=== PATIENT | female | born 1980 | race Caucasian/White ===

== ENCOUNTER → 2023-06-22 10:00 | Outpatient (REF) | payer OTHER, SELFPAY | LOC: HWWDC 10:00 | PROVIDERS: ATTENDING PHYSICIAN Obstetrics & Gynecology Gynecology; FAMILY PHYSICIAN Family Medicine | DX: Z12.31 Encounter for screening mammogram for malignant neoplasm of breast (principal) | CPT/HCPCS: 77063; 77067 ==

== ENCOUNTER 2024-02-12 16:10 | Emergency (ER) | payer OTHER, SELFPAY ==
[2024-02-12] VITALS (7 sets, daily range): BP systolic 96–110; BP diastolic 60–73; BMI 29.7
[2024-02-12 16:57] LABS: % Basophils 0.4 % (0-2); % Eosinophils 1.2 % (0-6); % Immature Granulocytes 0.2 % (0-0.5); % Lymphocytes 39.5 % (20.5-51.1); % Monocytes 4.8 % (1.7-9.3); % Neutrophils 53.9 % (42.2-75.2); Absolute Eosinophils 0.1 10^3/uL (0-0.7); Absolute Monocytes 0.2 10^3/uL (0.1-0.6); Absolute Neutrophils 2.7 10^3/uL (1.4-6.5); Hematocrit 35.7 % (37.0-47.0); Hemoglobin 12.2 g/dL (12.0-16.0); Mean Corp Hgb Conc. 34.2 g/dL (33.0-37.0); Mean Corpuscular Hgb 31.1 pg (27.0-31.0); Mean Corpuscular Volume 91.1 fL (81.0-99.0); Mean Platelet Volume 9.9 fL (7.4-10.4); Nucleated Red Blood Cells % 0 %; Platelet Count 267 10^3/uL (130-400); Red Blood Cell Count 3.92 10^6/uL (4.20-5.40); Red Cell Dist. Width 12.6 % (11.5-14.5)
[2024-02-12 17:10] LABS: ALT (SGPT) 14 U/L (0-35); AST (SGOT) 19 U/L (14-36); Albumin 4.4 g/dl (3.5-5.0); Alkaline Phosphatase 25 U/L (38-126); Blood Urea Nitrogen 9 mg/dl (7-17); Calcium 9.5 mg/dl (8.4-10.2); Carbon Dioxide 29 mmol/L (22-30); Chloride 100 mmol/L (98-107); Glucose 78 mg/dl (70-99); Potassium 3.7 mmol/L (3.5-5.1); Sodium 139 mmol/L (135-145); Total Bilirubin 0.3 mg/dl (0.2-1.3); eGFR > 60.00
--- NOTE | 2024-02-12 19:05 | ED.GENMED ---
History of Present Illness
General
Chief Complaint: Blood Pressure Problem
Source: patient
Exam Limitations: none
Time Seen by Provider: 02/12/24 19:05
Nursing documentation reviewed up to this point in time: agreed with
History of Present Illness
History of Present Illness:
43 yr old female presents to the ED for evaluation of low blood pressure. Patient reports over the weekend her blood pressure was in the 80s over 50s. She was very weak and tired and took her blood pressure on her own.
She was at her primary care physician office today for and mentioned her low blood pressure. Her blood pressure however in the office was again low in the 80s after several checks.
She has felt very tired and fatigued.
She denies any recent illness fever chills.
She denies any pain. Shortness of breath. She has no cardiac history. She does have a history of iron deficient anemia.
She reports she is on Zepbound for weight loss and ever since being on Zepbound she feels very full and does not drink enough water because she has a full sensation.
She denies any abdominal pain nausea vomiting fever chills back pain. Denies any known frequency urgency or dysuria
Review of Systems
Review of Systems
Allergies reviewed?: Yes
All Other Systems: ROS reviewed and negative except as documented in HPI and ROS
Constitutional: Reports fatigue; Denies fever or chills
EENT: Reports no symptoms
Respiratory: Reports no symptoms
Cardiac: Reports no symptoms
ABD/GI: Reports no symptoms
: Reports no symptoms
Musculoskeletal: Reports no symptoms
Skin: Reports no symptoms
Neurological: Reports no symptoms
Psychiatric: Reports no symptoms
Phy Exam
General Physical Exam
General Presentation: no apparent distress
General age: appears stated age
General Skin: warm and dry
General Habitus: normal
General Mental: alert
General Hydration: appears well hydrated
Cardiovascular Exam
Cardiovascular Exam: regular rate/rhythm
Pulmonary Exam
Pulmonary Exam: lungs clear and no respiratory distress
Gastrointestinal Exam
Gastrointestinal Exam: normal bowel sounds, non tender and soft
Neurological Exam
Neurological Exam: alert and oriented x3
Course
Orders/Labs/Results
Orders:
Orders
02/12/24 16:19
Electrocardiogram (*1) Urgent
Reason for Study: Chest Pain
EKG- Treatment ONCE
02/12/24 16:30
Complete Blood Count/With Diff Urgent
Comprehensive Metabolic Panel Urgent
Free T4 Urgent
TSH Reflex To Free T4 Urgent
Comment: ADD ON
02/12/24 19:23
Add On- LAB Urgent
Tests Added?: tsh with refleive t4
0.9% Sodium Chloride 1000 ml [Nss] 1,000 ml IV BOLUS
02/12/24 21:09
0.9% Sodium Chloride 1000 ml [Nss] 1,000 ml IV BOLUS
02/12/24 21:10
PHENYLephrine 50 MG/250 ML NSS [Evaristo-Synephrine] 50 mg in 250 ml IV NOW
Initial dose in mcg/min, then titrate:: 40
Titrate to keep:: SBP > 90 mmHg
Titrate by mcg/min:: 20 mcg/min
Frequency of titrations (minutes):: 5
Maximum dose in ICU in mcg/min:: 200
Maximum dose in IMU in mcg/min:: 80
Begin to taper infusion when:: Remained at goal for 4hrs
Taper by mcg/min:: 20 mcg/min
Frequency of taper (minutes) if patient maintains goal:: 30
Taper to off?: Yes
If infusion off & no longer maintaining goal:: Contact Provider
Abnormal Lab Results
02/12/24
16:30
RBC 3.92 L 10^6/uL
(4.20-5.40)
Hct 35.7 L %
(37.0-47.0)
MCH 31.1 H pg
(27.0-31.0)
Alkaline Phosphatase 25 L U/L
(38-126)
TSH (Reflex) 5.72 H uIU/ml
(0.47-4.68)
02/12/24 16:30
02/12/24 16:30
Vital Signs
Initial and Last Documented VS:
Initial Vital Signs
Temp Pulse Resp BP Pulse Ox
97.7 F 84 20 98/70 99
02/12/24 16:14 02/12/24 16:14 02/12/24 16:14 02/12/24 16:14 02/12/24 16:14
Last Documented Vital Signs
Temp Pulse Resp BP Pulse Ox
97.7 F 71 18 96/64 98
02/12/24 16:14 02/12/24 22:00 02/12/24 21:45 02/12/24 22:00 02/12/24 22:00
Transfer Iron Operator consulted with Physician
Transfer Iron Operator consulted with physician?: Yes
Name of Physician Consulted: Goodmayra
MDM/Problems Addressed
MDM/Problems Addressed:
Patient is a 43-year-old female who presented to the ER for low blood pressure. Patient reports over the weekend she had low blood pressure in the 80s over 50s and felt lightheaded. She saw her family doctor today for regular checkup and was sent
here to the ER for fluids. Looking back in patient's history and previous visits her blood pressure in 2022 was in the low 100s over 70s.
She presents with a blood pressure of 98/70 here however pulse in the 70s to 80s. She is nontoxic-appearing no acute distress she is well-appearing denies any chest pain shortness of breath abdominal pain nausea vomiting fever chills. She denies
any recent illness. She has a normal white count stable hemoglobin and normal chemistries. Her TSH is very minimally elevated with a normal free T4.
Patient was given a liter of fluids here we will give a second liter and will walk patient see how she is feeling however stable for discharge home with close outpatient follow-up PCP.
Patient feeling much better ambulated without any dizziness lightheadedness blood pressure in the low 100s. She is very nontoxic-appearing she was given a total of 2 L fluid will DC with instructions to increase fluid and closely follow-up with
family doctor.
*Critical Care Note
Total Time (30-74mins, 75-104mins- exclusive of procedures): Not Applicable
ED Attending Note
-
Portions of this chart may have been created with voice recognition software.� Occasional wrong word or��sound alike� substitutions may have occurred due to the inherent limitations of voice recognition software.
Discharge Plan
Departure
Patient Disposition: Home (Routine Discharge)
Date of Disposition: 02/12/24
Time of Disposition: 22:31
Patient with high blood pressure during this ER visit?: No
Condition: Fair
Covid-19: Not Applicable
Discharge Problem:
Acute hypotension
Prescriptions:
No Action
meclizine 25 mg tablet
25 mg PO TID Qty: 10 0RF
Referrals:
Sky Lepe DO [Family Provider] -
Activity Restrictions/Additional Instructions:
increase fluids. Closely follow-up with your family doctor in the next 2 days for reevaluation of blood pressure return if any worsening of symptoms .
Interventions
Interventions:
*Risk Screen - Suicide Last Done: 02/12/24 16:14
*General Assessment Last Done: 02/12/24 16:14
*Neglect/Abuse Screening Last Done: 02/12/24 16:14
*ED COVID-19 Vaccine History Last Done: 02/12/24 19:37
ED- Cardiac Assessment Last Done: 02/12/24 19:48
ED- Neurological Assessment Last Done: 02/12/24 19:48
ED- Pulmonary Assessment Last Done: 02/12/24 19:48
Discharge Date and Time
Print Language: DUTCH
[2024-02-12] MEDS: NSS 1000 IV ×2 (19:34→21:26)
[2024-02-12 20:37] LABS: TSH Reflex To Free T4 5.72 uIU/ml (0.47-4.68)
[2024-02-12 21:06] LABS: Free T4 0.78 ng/dl (0.78-2.19)
== END 2024-02-12 22:53 | disposition home or self-care (01) ==
LOC: EMR 16:10
PROVIDERS: Emergency Medicine; EMERGENCY PHYSICIAN Emergency Medicine; FAMILY PHYSICIAN Family Medicine
DX: I95.9 Hypotension, unspecified (principal)
CPT/HCPCS: 99284; 96360; 96361; 80053; 84439; 84443; 85025; 93005

== ENCOUNTER 2024-04-20 22:40 | Inpatient (IN) | payer OTHER, SELFPAY ==
[2024-04-20 18:44] VITALS: BP 117/80
[2024-04-20] MEDS: DILAUDID 1 MG IV ×2 (19:39→21:42)
[2024-04-20] MEDS: ZOFRAN 4 MG IV ×2 (19:40→21:42)
[2024-04-20] MEDS: PROTONIX IV 40 MG IV (19:40)
[2024-04-20] MEDS: NSS 1000 IV ×2 (19:40→21:42)
--- NOTE | 2024-04-20 19:51 | ED.GENMED ---
History of Present Illness
General
Chief Complaint: Abdominal Pain
Source: patient
Exam Limitations: none
Time Seen by Provider: 04/20/24 19:22
Nursing documentation reviewed up to this point in time: agreed with
History of Present Illness
History of Present Illness:
44-year-old female prior lumpectomy hernia repair presents with right upper abdominal pain 5 episodes since February tells me is not associated with eating, she is concerned it could be her gallbladder, has not sought medical attention,
pain is sharp radiates into the back, nausea without vomiting no fevers no chest pain most recent episode has been fairly constant since yesterday
Past History
Past History
ED Past Surgical History: Gynecological; Negative Appendectomy or Cholecystectomy
Social History
Tobacco: Smoker
Alcohol: Occasional
Drug: None
Personal:
Living: with family
Employment: Employed
Review of Systems
Review of Systems
All Other Systems: Not applicable
Constitutional: Denies fever or fatigue
Respiratory: Reports no symptoms
Cardiac: Reports no symptoms
ABD/GI: Reports abdominal pain and nausea
Musculoskeletal: Reports back pain
Skin: Reports no symptoms
Neurological: Reports no symptoms
Endocrine: Reports no symptoms
Phy Exam
Physical Exam
Physical Exam:
Physical Exam
General: 44 female looks uncomfortable due to pain
Neck: Slight scleral yellowing
Heart: s1/s2 regular rate and rhythm, no murmur. equal radial pulses.
Lungs: no acute respiratory distress. clear bilaterally
Abdomen: Tender in the right upper abdomen
Neuro: alert and oriented. no focal neurological deficits
Skin: no rash
Psychiatric: well kept. interactive and cooperative
Extremities: no edema.
Course
Orders/Labs/Results
Orders:
Orders
04/20/24 19:27
Electrocardiogram (*1) Stat
Reason for Study: Abdominal Pain
EKG- Treatment ONCE
0.9% Sodium Chloride 1000 ml [Nss] 1,000 ml IV BOLUS
HYDROmorphone [Dilaudid] 1 mg IV NOW STA
Ondansetron Injectable [Zofran] 4 mg IV NOW STA
Pantoprazole [Protonix IV] 40 mg IV NOW STA
US Abdomen Complete/Upper Urgent
Comment:
Reason For Exam: ruq pain
04/20/24 19:31
Complete Blood Count/With Diff Urgent
Comprehensive Metabolic Panel Urgent
Lipase Urgent
Abnormal Lab Results
04/20/24
19:31
Absolute Lymphs (auto) 1.1 L 10^3/uL
(1.2-3.4)
Neutrophils % 77.1 H %
(42.2-75.2)
Lymphocytes % 16.7 L %
(20.5-51.1)
Carbon Dioxide 31 H mmol/L
(22-30)
Total Bilirubin 1.4 H mg/dl
(0.2-1.3)
AST 1299 H* U/L
(14-36)
ALT 730 H* U/L
(0-35)
04/20/24 19:31
04/20/24 19:31
Vital Signs
Initial and Last Documented VS:
Initial Vital Signs
Temp Pulse Resp BP Pulse Ox
97.8 F 96 18 117/80 98
04/20/24 18:44 04/20/24 18:44 04/20/24 18:44 04/20/24 18:44 04/20/24 18:44
Last Documented Vital Signs
Temp Pulse Resp BP Pulse Ox
97.8 F 96 18 117/80 98
04/20/24 18:44 04/20/24 18:44 04/20/24 18:44 04/20/24 18:44 04/20/24 18:44
MDM/Problems Addressed
Differential Diagnosis Includes:
Biliary colic pancreatitis cholecystitis choledocholithiasis urinary tract pathology less likely pulmonary breath
MDM/Problems Addressed:
Right upper quadrant pain
Chronic conditions affecting care: Previous abdomnial surgery
Acute Exacerbation and/or Progression of Chronic Illness: Previous abdomnial surgery
*Radiology
Radiology exam reviewed: preliminary read by ED provider
*Pulse Oximetry
Patient hypoxic: no
*EKG
Interpreted by ED Provider?: Yes
Interpretation: normal
Comparison EKG: no comparison EKG present
Heart Rate: 78
Rate: normal
Rhythm: sinus
Ischemia: no ischemia
*[employer] Intern Interpretation
Rate: normal
Heart Rate: 78
*Critical Care Note
Total Time (30-74mins, 75-104mins- exclusive of procedures): Not Applicable
Update Note
Update Note:
Update labs noted, LFTs up T. bili ultrasound noted report pending patient still with some pain but no fever reviewed with hospitalist and general surgery may be dealing with choledocholithiasis,
Reviewed with patient
ED Attending Note
-
Portions of this chart may have been created with voice recognition software.� Occasional wrong word or��sound alike� substitutions may have occurred due to the inherent limitations of voice recognition software.
Discharge Plan
Departure
Patient Disposition: Admit
Date of Disposition: 04/20/24
Time of Disposition: 21:38
Admit to: Med/Surg
Presentation/result/management discussed w/ accepting MD/DO: Hospitalist
Patient with high blood pressure during this ER visit?: No
Condition: Fair
Discharge Problem:
Choledocholithiasis
Prescriptions:
No Action
meclizine 25 mg tablet
25 mg PO TID Qty: 10 0RF
Referrals:
Sky Lepe DO [Family Provider] -
Interventions
Interventions:
*Risk Screen - Suicide Last Done: 04/20/24 18:44
*General Assessment Last Done: 04/20/24 18:44
*Neglect/Abuse Screening Last Done: 04/20/24 19:25
*ED COVID-19 Vaccine History Last Done: 04/20/24 18:44
KA-Xkfleg-Qhudzbhxph Assessment Last Done: 04/20/24 19:24
Discharge Date and Time
Print Language: DANISH
[2024-04-20 19:54] LABS: % Basophils 0.3 % (0-2); % Eosinophils 0.3 % (0-6); % Immature Granulocytes 0.3 % (0-0.5); % Lymphocytes 16.7 % (20.5-51.1); % Monocytes 5.3 % (1.7-9.3); % Neutrophils 77.1 % (42.2-75.2); Absolute Lymphocytes 1.1 10^3/uL (1.2-3.4); Absolute Monocytes 0.4 10^3/uL (0.1-0.6); Absolute Neutrophils 5.1 10^3/uL (1.4-6.5); Mean Corp Hgb Conc. 33.3 g/dL (33.0-37.0); Mean Corpuscular Volume 92.9 fL (81.0-99.0); Mean Platelet Volume 9.8 fL (7.4-10.4); Nucleated Red Blood Cells % 0 %; Platelet Count 249 10^3/uL (130-400); White Blood Cell Count 6.6 10^3/uL (4.8-10.8)
[2024-04-20 20:16] LABS: ALT (SGPT) 730 U/L (0-35); Albumin 4.3 g/dl (3.5-5.0); Alkaline Phosphatase 120 U/L (38-126); Blood Urea Nitrogen 11 mg/dl (7-17); Calcium 9.3 mg/dl (8.4-10.2); Carbon Dioxide 31 mmol/L (22-30); Chloride 102 mmol/L (98-107); Glucose 86 mg/dl (70-99); Lipase 257 U/L (23-300); Potassium 3.9 mmol/L (3.5-5.1); Sodium 137 mmol/L (135-145); Total Bilirubin 1.4 mg/dl (0.2-1.3); Total Protein 7.3 g/dl (6.3-8.2); eGFR > 60.00
[2024-04-20 20:21] LABS: AST (SGOT) 1299 U/L (14-36)
[2024-04-20] MEDS: ZOSYN 50 IV (21:43)
[2024-04-20 21:49] VITALS: BP 107/62
[2024-04-20 22:00] VITALS: BP 110/66
--- NOTE | 2024-04-20 22:35 | HPS.HSE ---
Family Physician
-
Family Physician: Sky Lepe
Chief Complaint
-
Abd Pain
History of Present Illness
Patient is a 44y F with PMH significant for anxiety / depression who presents to ED complaining of abdominal pain. Patient states that she has had 5-6 episodes of epigastric abdominal pain since 02/2024. Pain is epigastric with radation into
the RUQ and R flank areas. Mild nausea. No emesis. No diarrhea. No fevers / chills. She has had two episodes this week (Monday and today). Most episodes wake her from sleep. She had pain this evening that was more severe and did not
resolve.
She presented to the ED for further evaluation and treatment.
Patient reports history of chronic constipation.
Medical History
Past Medical History
Past Medical History: Reports Other
Additional Past Medical History:
Anxiety / Depression
Chronic Constipation
Iron Deficiency
Vitamin D Deficiency
Past Surgical History: Reports Other
Additional Past Surgical History:
x 2
Uterine Lesion Resection
Right Lumpectomy (benign)
Umbilical Hernia Repair with Mesh
Social History
Tobacco: Smoker (Priro cigarette use x years. Now vaping daily for the past year or so.)
Alcohol: Occasional (Rare. None recent.)
Drug: None
Personal:
Living: With Family
Family History
Family History: Not pertinent
Allergies / Home Medications
Allergies reflects when Allergies were last updated in [facility].
Home Medications with original date entered in [facility]
Allergy/Medication List:
Allergies
Allergy/AdvReac Type Severity Reaction Status Date / Time
No Known Allergies Allergy Verified 04/20/24 18:47
Home Medications
bupropion HCl 150 mg 24 hr tablet, extended release (Wellbutrin XL) 450 mg PO HS 04/20/24
clonazepam 0.5 mg tablet 0.5 mg PO HS 04/20/24
ergocalciferol (vitamin D2) 1,250 mcg (50,000 unit) capsule (Vitamin D2) 1,250 mcg PO FR 04/20/24
escitalopram oxalate 20 mg tablet (Lexapro) 20 mg PO HS 04/20/24
linaclotide 145 mcg capsule (Linzess) 145 mcg PO DAILY PRN constipation 04/20/24
Review of Systems
-
History Source: Patient
A 12 point ROS was completed and negative except as noted: Yes
Constitutional: Denies Fever or Chills
Respiratory: Denies Cough or Trouble Breathing
Cardiac: Denies Chest Pain or Palpitations
Abdomen/GI: Reports Abdominal Pain, Nausea and Constipated; Denies Vomiting or Diarrhea
: Denies Dysuria or Frequency
Musculoskeletal: Denies Joint Pain or Edema
Neurological: Denies Dizzy or Headache
Psych: Denies Depression or Anxiety
Physical Exam
Vital Signs
Vital Signs
Temp Pulse Resp BP Pulse Ox
97.8 F 81 21 107/62 99
04/20/24 18:44 04/20/24 21:49 04/20/24 21:49 04/20/24 21:49 04/20/24 21:49
Physical Exam
General: Other (44y F in mild distress due to abdominal pain.)
HEENT: Moist mucous membranes and PERRLA
Respiratory: Clear; No Wheezes, Rales or Rhonchi
Cardiac: S1/S2 and Regular Rhythm; No Murmur
GI: Soft, Non Distended, Normal Bowel Sounds and Other (Mild RUQ tenderness. No rebound / guarding. Pos BS.)
Musculoskeletal: No Clubbing, No Cyanosis and No Edema
Neuro: AO x 3
Laboratory Results
-
04/20/24 19:31
04/20/24 19:31
Laboratory Results
Total Bilirubin 1.4 mg/dl (0.2-1.3) H 04/20/24 19:31
AST 1299 U/L (14-36) H* 04/20/24 19:31
ALT 730 U/L (0-35) H* 04/20/24 19:31
Alkaline Phosphatase 120 U/L (38-126) 04/20/24 19:31
Lipase 257 U/L (23-300) 04/20/24 19:31
Impression/Plan
-
A/P: Patient is a 44y F with PMH significant for chronic constipation and anxiety / depression who presents to ED complaining of abdominal pain.
Cholelithiasis +/- Choledocholithiasis
Abnormal LFTs
- Admit for further evaluation and treatment.
- Significant elevation in transaminases - check hepatitis panel.
- US shows multiple gallstones, but no evidence of wall thickening, perichole fluid, etc.
- IV abx for now.
- MRCP in AM.
- GI and Surgery evaluations for additional recommendations.
- NPO, IVF support, pain control, etc.
- Follow for any new / worsening symptoms.
Anxiety / Depression
- Stable. Continue current psychotropic med regimen without changes.
Chronic Constipation
- No recent / acute issues.
- Bowel regimen once taking in POs / post any procedures.
DVT Prophylaxis: SCDs
Code Status: Full
[2024-04-20 23:20] VITALS: BP 121/69; BMI 29.5
[2024-04-20] MEDS: LR 1000 IV (23:30)
--- NOTE | 2024-04-21 01:21 | PTCARENOTE ---
Addendum entered by Becky Chappell RN 04/21/24 04:42:
Pt arrived on 2S at 23:03 04/20
Original Note:
04/20 Patient is a 44y F with PMH significant for anxiety / depression, chronic constipation, Iron Deficiency, Vitamin D Deficiency. Past Surgical History: x 2, Uterine Lesion Resection, Right Lumpectomy (benign), Umbilical Hernia Repair
with Mesh. Diagnosis Cholelithiasis.
Abdomen US - No evidence for bile duct dilation. Right kidney extrarenal pelvis, considered normal variation. Normal appearance of the left kidney.
Labs: LFT elevated AST 1299, ALT 730, Total Bilirubin 1.4. Awaiting results of Hep A, B, C labs. Pt AOx3, stand-by assist due to pt feeling weak, bed is in a low position, call jo in reach, pt instructed to call if she needs anything or wants to
get up. Care on-going.
[2024-04-21] MEDS: ZOFRAN 4 MG IV (04:18)
[2024-04-21] MEDS: ZOSYN 50 IV ×4 (04:18→21:31)
[2024-04-21] MEDS: TYLENOL 650 MG PO (04:18)
--- NOTE | 2024-04-21 04:20 | PTCARENOTE ---
Pt LFTs are elevated (AST 1299 & ALT 730).TT FOREST PATHOLOGY ASSOCIATE PROFESSOR to ask if I should give pt Tylenol for her headache and Zofran for Nausea. FOREST PATHOLOGY ASSOCIATE PROFESSOR gave me OK to give both medications.
[2024-04-21 06:21] LABS: Albumin 3.2 g/dl (3.5-5.0); Alkaline Phosphatase 100 U/L (38-126); Blood Urea Nitrogen 7 mg/dl (7-17); Calcium 8.1 mg/dl (8.4-10.2); Carbon Dioxide 28 mmol/L (22-30); Chloride 106 mmol/L (98-107); Direct Bilirubin 0.7 mg/dl (0.0-0.4); Estimated Creatinine Clearance 89 ml/min; Glucose 77 mg/dl (70-99); Sodium 138 mmol/L (135-145); Total Bilirubin 1.3 mg/dl (0.2-1.3); Total Protein 5.4 g/dl (6.3-8.2); eGFR > 60.00
[2024-04-21 06:29] LABS: Hematocrit 32.4 % (37.0-47.0); Hemoglobin 10.7 g/dL (12.0-16.0); Mean Corpuscular Hgb 31.5 pg (27.0-31.0); Mean Corpuscular Volume 95.3 fL (81.0-99.0); Mean Platelet Volume 10.2 fL (7.4-10.4); Platelet Count 168 10^3/uL (130-400); Red Cell Dist. Width 13.3 % (11.5-14.5); White Blood Cell Count 3.4 10^3/uL (4.8-10.8)
[2024-04-21 06:33] LABS: ALT (SGPT) 1024 U/L (0-35); AST (SGOT) 1438 U/L (14-36)
--- NOTE | 2024-04-21 07:20 | CON.GI ---
Consultation
-
Date/Time Consultation Requested: 04/20/24 at 5pm
Date/Time Consultation Performed: 04/21/24 at 6:30 am
Requesting Provider: brad
Performing Provider: dwayne
Reason for Consultation: abdominal pain
Medical History
Chief Complaint / HPI
Chief Complaint: abd pain
History of Present Illness:
This patient is a 44-year-old woman with a history of epigastric abdominal pain that she states has been happening on and off since February. She states that it comes and then ultimately resolves and can wake her up at night. She states that she
had been on Zepbound prior to that happening for approximately 6 months but stopped it after emergency room visit for hypotension. She did state that this pain that she had became more severe over the last 3 days which led her to the hospital. She
does not have any fevers or nausea or vomiting. She does state this morning that the pain is much better. She does have an ultrasound that shows multiple gallstones with a distended gallbladder without any clear biliary stones or dilation.
Past Medical History
Past Medical History: None
Past Surgical History:
Social History
Tobacco: Smoker
Alcohol: Occasional
Drug: None
Family History
Family History: Reviewed & Not Pertinent
Allergies / Home Medications
Allergy/AdvReac Type Severity Reaction Status Date / Time
No Known Allergies Allergy Verified 04/20/24 18:47
�Medication �Instructions �Recorded
bupropion HCl 150 mg 24 hr tablet, 450 mg PO HS 04/20/24
extended release (Wellbutrin XL)
clonazepam 0.5 mg tablet 0.5 mg PO HS 04/20/24
ergocalciferol (vitamin D2) 1,250 1,250 mcg PO FR 04/20/24
mcg (50,000 unit) capsule (Vitamin
D2)
escitalopram oxalate 20 mg tablet 20 mg PO HS 04/20/24
(Lexapro)
linaclotide 145 mcg capsule 145 mcg PO DAILY PRN constipation 04/20/24
(Linzess)
Review of Systems
-
All other systems: A 12 pt ROS was Negative except as stated above in HPI
Vital Signs
Temp Pulse Resp BP Pulse Ox
97.9 F 76 18 121/69 100
04/20/24 23:20 04/20/24 23:20 04/20/24 23:20 04/20/24 23:20 04/20/24 23:30
Physical Exam
Exam
General: No Apparent Distress
HEENT: Anicteric
Cardiac: S1/S2
GI: Soft and Non Tender
Neuro: Awake, Alert and Oriented
Psych: Calm
Results
WBC 3.4 10^3/uL (4.8-10.8) L 04/21/24 04:30
Hgb 10.7 g/dL (12.0-16.0) L 04/21/24 04:30
Hct 32.4 % (37.0-47.0) L 04/21/24 04:30
MCV 95.3 fL (81.0-99.0) 04/21/24 04:30
Plt Count 168 10^3/uL (130-400) D 04/21/24 04:30
Absolute Neuts (auto) 5.1 10^3/uL (1.4-6.5) 04/20/24 19:31
Sodium 138 mmol/L (135-145) 04/21/24 04:30
Potassium 4.0 mmol/L (3.5-5.1) 04/21/24 04:30
Chloride 106 mmol/L (98-107) 04/21/24 04:30
Carbon Dioxide 28 mmol/L (22-30) 04/21/24 04:30
BUN 7 mg/dl (7-17) 04/21/24 04:30
Creatinine 0.8 mg/dL (0.6-1.0) 04/21/24 04:30
Calcium 8.1 mg/dl (8.4-10.2) L 04/21/24 04:30
Total Bilirubin 1.3 mg/dl (0.2-1.3) 04/21/24 04:30
AST 1438 U/L (14-36) H* 04/21/24 04:30
ALT 1024 U/L (0-35) H* 04/21/24 04:30
Alkaline Phosphatase 100 U/L (38-126) 04/21/24 04:30
Lipase 257 U/L (23-300) 04/20/24 19:31
Diagnostic Image Results:
Prior GI Procedures:
EGD:
Colonoscopy:
Assessment / Plan
-
This patient is a 44-year-old woman with a history of typical biliary colic and cholelithiasis who does have a marked transaminitis. For now would do the following
1. She does need an MRI/MRCP to rule out biliary dilation. By her clinical symptoms it does appear that a stone likely passed and the labs may be lagging behind.
2. She does need a workup for hepatitis and hepatitis panel has been sent. I will add autoimmune serologies and coags.
3. She should remain n.p.o. for now.
4. She is off of Zepbound at this point and has been since february
5. She should have a surgical consult at some point as well.
6. Of note she has had a colonoscopy by Dr. Nicholson when she had IBS like symptoms back in 2017 that was normal.
Data Reviewed
-
Radiology: Report Reviewed by me
-
-
Thank you for consultation and allowing me to participate in the patient's care. Please call the loom control chain builder GI physician during the after hours with any questions or concerns.
[2024-04-21 07:34] VITALS: BP 103/60
--- NOTE | 2024-04-21 08:27 | W.PN.HOSP.TC ---
Today's Communication/Plan
-
MRI/MRCP
See below
Assessment / Plan
Assessment / Plan
Physical Exam
General: Not in acute distress
HEENT: Moist mucous membranes
Respiratory: Clear to Auscultation Bilaterally
Cardiac: S1/S2 and Regular Rhythm
GI: Soft, Non Distended, Non Tender, Normal Bowel Sounds
Musculoskeletal: No Cyanosis and No Edema
Neuro: AAO x 3. Cranial Nerves, Strength, and Sensation all nonfocal/grossly intact bilaterally.
Assessment/Plan
Patient is a 44 y/o female with past medical history significant for chronic constipation and anxiety / depression who presented complaining of abdominal pain.
Cholelithiasis +/- Choledocholithiasis
Abnormal LFTs
- Possibly already passed gallstone and labs may improve over time as a results
- Significant elevation in transaminases - check hepatitis panel.
- US shows multiple gallstones, but no evidence of wall thickening, perichole fluid, etc.
- IV abx for now.
- MRCP
- GI and Surgery evaluations for additional recommendations.
- NPO, IVF support, pain control, etc.
- She should have a surgical consult at some point as well.
Anxiety / Depression
- Stable. Continue current psychotropic med regimen without changes.
Chronic Constipation
- No recent / acute issues.
- Bowel regimen once taking in POs / post any procedures.
Headache
-Toradol given on 04/21/24
DVT Prophylaxis: SCDs. Lovenox.
Code Status: Full Code
Anticipated Discharge: > 48 hours
Subjective/Interval History
-
Date of Service: April 21, 2024
Patient was seen and examined. She reported mild headache this morning. Abdominal pain is better according to her.
Objective Data
-
Labs:
Laboratory Results
04/21/24
04:30
WBC 3.4 L
Hgb 10.7 L
Hct 32.4 L
Plt Count 168 D
Sodium 138
Potassium 4.0
Chloride 106
Carbon Dioxide 28
BUN 7
Creatinine 0.8
Glucose 77
Calcium 8.1 L
Total Bilirubin 1.3
AST 1438 H*
ALT 1024 H*
Alkaline Phosphatase 100
Vital Signs:
Vital Signs
Temp Pulse Resp BP Pulse Ox
97.9 F 76 18 121/69 100
04/20/24 23:20 04/20/24 23:20 04/20/24 23:20 04/20/24 23:20 04/20/24 23:30
I&O
04/20/24 04/21/24 04/22/24
06:59 06:59 06:59
Intake Total 990 / 990
Balance 990 / 990
[2024-04-21] MEDS: TORADOL 15 MG IV (08:46)
[2024-04-21] MEDS: LR 1000 IV ×2 (10:42→23:01)
[2024-04-21] MEDS: DILAUDID 0.5 MG IV ×3 (10:49→19:58)
--- NOTE | 2024-04-21 11:51 | CON.GS ---
Addendum entered and electronically signed by Jacoby Billingsley MD 04/21/24 13:29:
Patient is a 44 yo F with a PMH of anxiety/depression, anemia, s/p breast lumpectomy, s/p x 2, and s/p open umbilical hernia repair with Ventralex ST mesh (no comment on size) and removal of an LLQ abdominal wall lipoma in 2016 by
Lonny. Ms. Hutchinson presents with intermittent epigastric and RUQ abdominal pain. She states that she has had episodes on an almost weekly basis for several months now. Symptoms would occur postprandially and at night. She notes pale stools
and dark or foamy urine. She denies any jaundice. She initially attributed her symptoms to gas. No fevers or chills. No nausea or vomiting. Currently she continues to have some pain headache.
Gen: NAD
Abd: soft, tender in epigastrium, ND, non-peritoneal, prior incisions well healed
Labs and ultrasound were reviewed.
Patient is a 44 yo F p/w episodes of biliary colic and choledocholithiasis
The natural history and pathophysiology of biliary and stone disease was discussed. Anatomy was reviewed. With complaints for including labs and ultrasound imaging was reviewed. Given the elevation in bilirubin and markedly elevated LFTs her
symptoms are most likely related to choledocholithiasis. GI consult noted. MRI pending. Role of cholecystectomy in preventing future episodes of biliary colic, acute cholecystitis, choledocholithiasis was reviewed. Recommend cholecystectomy
during this admission. Timing TBD based on above-noted workup. All questions answered.
--MRCP pending
--GI following for possible ERCP pending MRI findings
--OK for clears today from surgical standpoint, anticipate no procedures today
--Analgesics prn
--Discussed the role of laparoscopic cholecystectomy to prevent recurrence, timing of surgery TBD pending GI work up
Original Note:
Medical History
-
Chief Complaint: Recurrent epigastric/ruq pain
History of Present Illness:
Ms Hutchinson is a 44 yo female with a h/o x2, UHR with mesh with removal 1 cm fibrous nodule in left lower quadrant subcutaneous fat by Dr. Mukherjee in 2016 and iron deficiency who presents with recurrent epigastric pain radiating into the
ruq and right mid back. She notes she has had episodes of this pain about every week or so usually awakening her from sleep since February. She initially attributed her symptoms to gas and would try massage for relief. She notes that she has had
acholic stools intermittently after episodes and this week her urine has been darker and foamy. She denies jaundice. This past week the episodes have become more frequent with attacks on Monday and Monday and again yesterday with pain become more
constant causing her to present for evaluation. She denies fevers or chills. She denies nausea or vomiting. She is currently complaining of a headache with mild epigastric discomfort. Minimal RUQ tenderness on exam.
Past Medical History
Past Medical History: Psychiatric (anxiety/depression) and Other (iron deficiency, vit d deficiency, chronic constipation)
Past Surgical History: (x2) and Hernia Repair (UHR with ventralex mesh with removal of 1 cm fibrous nodule in left lower quadrant subcutaneous fat concurrently)
Social History
Tobacco: Vaping (prior cigarette smoking)
Alcohol: Occasional
Living: With Family
Family History
Family History: Reviewed & Not Pertinent
Allergies / Home Medications
Allergy/AdvReac Type Severity Reaction Status Date / Time
No Known Allergies Allergy Verified 04/20/24 18:47
�Medication �Instructions �Recorded �Confirmed �Type
bupropion HCl 150 mg 24 hr tablet, 450 mg PO HS Depression 04/20/24 04/20/24 History
extended release (Wellbutrin XL)
clonazepam 0.5 mg tablet 0.5 mg PO HS Sleep 04/20/24 04/20/24 History
ergocalciferol (vitamin D2) 1,250 1,250 mcg PO FR Vit D Deficency 04/20/24 04/20/24 History
mcg (50,000 unit) capsule (Vitamin
D2)
escitalopram oxalate 20 mg tablet 20 mg PO HS Depression 04/20/24 04/20/24 History
(Lexapro)
linaclotide 145 mcg capsule 145 mcg PO DAILY PRN constipation 04/20/24 04/20/24 History
(Linzess)
Review of Systems
-
History Source: Patient
All other systems: Negative unless noted
A 10 point review of systems was completed, and was negative except as per HPI.
Physical Exam
Vital Signs
Temp Pulse Resp BP Pulse Ox
97.9 F 71 16 103/60 97
04/21/24 07:34 04/21/24 07:34 04/21/24 07:34 04/21/24 07:34 04/21/24 08:00
04/20/24 04/21/24 04/22/24
06:59 06:59 06:59
Actual Weight 77.927 kg
Body Mass Index (BMI) 29.5
Lab Results
04/21/24 04:30
04/21/24 04:30
WBC 3.4 10^3/uL (4.8-10.8) L 04/21/24 04:30
Hgb 10.7 g/dL (12.0-16.0) L 04/21/24 04:30
Hct 32.4 % (37.0-47.0) L 04/21/24 04:30
Plt Count 168 10^3/uL (130-400) D 04/21/24 04:30
Abs Immat Gran (auto) 0.0 10^3/uL (0-0.05) 04/20/24 19:31
Neutrophils % 77.1 % (42.2-75.2) H 04/20/24 19:31
Physical Exam
General: Well Developed
HEENT: Normocephalic and Anicteric
Respiratory: Non Labored Respirations
GI: Soft, Non Distended and Tender (mild epigastric to ruq)
Skin: Warm and Dry; Negative Jaundice
Neuro: Awake, Alert and AO x 3
Psych: Calm
Assessment / Plan
-
44 yo female with a h/o x2, UHR with mesh with removal 1 cm fibrous nodule in left lower quadrant subcutaneous fat who presents with recurrent biliary colic since February with symptoms becoming more persistent over the past 4-5 days.
No leukocytosis. Bilirubin 1.4 on presentation now 1.3 with direct bili of 0.7. AST/ALT markedly elevated. Lipase is 257. ABD US with gallstones present but no pericholecystic edema/wall thickening to suggest acute cholecystitis. Suspect
choledocholithiasis, recently passed stone.
--MRCP pending
--GI following for possible ERCP pending MRI findings
--OK for clears today from surgical standpoint, anticipate no procedures today
--Analgesics prn
--Discussed the role of laparoscopic cholecystectomy to prevent recurrence, timing of surgery TBD pending GI work up
[2024-04-21 16:33] VITALS: BP 108/54
[2024-04-21] MEDS: LOVENOX 40 MG SC (17:01)
[2024-04-21] MEDS: FIORICET 1 TAB PO (19:52)
[2024-04-21] MEDS: SENOKOT-S 1 TABLET PO (19:52)
[2024-04-21] MEDS: WELLBUTRIN XL (24 hour extended release) 450 MG PO (21:31)
[2024-04-21] MEDS: LEXAPRO 20 MG PO (21:31)
[2024-04-21] MEDS: KLONOPIN 0.5 MG PO (21:31)
[2024-04-21 23:35] VITALS: BP 92/54
[2024-04-22] VITALS (12 sets, daily range): BP systolic 96–118; BP diastolic 53–80
[2024-04-22] MEDS: FIORICET 1 TAB PO ×3 (00:03→09:00)
[2024-04-22] MEDS: ZOSYN 50 IV ×4 (04:45→21:47)
[2024-04-22] MEDS: ZOFRAN 4 MG IV (04:56)
[2024-04-22] MEDS: SENOKOT-S 1 TABLET PO ×2 (07:55→20:52)
--- NOTE | 2024-04-22 08:30 | W.PN.SURGUPD ---
Surgical Update
Surgical Update
Patient sleeping comfortably. Chart reviewed. MRI positive for choledocholithiasis. Repeat labs pending. Timing of cholecystectomy TBD.
[2024-04-22 08:31] LABS: % Basophils 0.7 % (0-2); % Eosinophils 1.2 % (0-6); % Immature Granulocytes 0.2 % (0-0.5); % Lymphocytes 33.8 % (20.5-51.1); % Monocytes 5.6 % (1.7-9.3); % Neutrophils 58.5 % (42.2-75.2); Absolute Eosinophils 0.1 10^3/uL (0-0.7); Absolute Lymphocytes 1.4 10^3/uL (1.2-3.4); Absolute Monocytes 0.2 10^3/uL (0.1-0.6); Absolute Neutrophils 2.4 10^3/uL (1.4-6.5); Hematocrit 32.5 % (37.0-47.0); Hemoglobin 10.9 g/dL (12.0-16.0); Mean Corp Hgb Conc. 33.5 g/dL (33.0-37.0); Mean Corpuscular Hgb 31.6 pg (27.0-31.0); Mean Corpuscular Volume 94.2 fL (81.0-99.0); Mean Platelet Volume 9.9 fL (7.4-10.4); Nucleated Red Blood Cells % 0 %; Platelet Count 175 10^3/uL (130-400); Red Blood Cell Count 3.45 10^6/uL (4.20-5.40); Red Cell Dist. Width 12.7 % (11.5-14.5); White Blood Cell Count 4.1 10^3/uL (4.8-10.8)
--- NOTE | 2024-04-22 08:36 | W.PN.UPDATE ---
Update Note
Progress Note Update
Dr. Castillo, GI advanced endoscopist reviewed images. Pt for ERCP today. keep npo
[2024-04-22 08:56] LABS: INR 1.07; PT 14.2 Sec (11.4-14.6)
[2024-04-22 08:57] LABS: APTT 32.9 Sec (23.4-35.0)
[2024-04-22] MEDS: LR 1000 IV (09:00)
[2024-04-22 09:05] LABS: ALT (SGPT) 562 U/L (0-35); AST (SGOT) 437 U/L (14-36); Albumin 2.9 g/dl (3.5-5.0); Alkaline Phosphatase 105 U/L (38-126); Blood Urea Nitrogen 11 mg/dl (7-17); Calcium 8.3 mg/dl (8.4-10.2); Carbon Dioxide 25 mmol/L (22-30); Chloride 105 mmol/L (98-107); Estimated Creatinine Clearance 89 ml/min; Glucose 46 mg/dl (70-99); Lipase 67 U/L (23-300); Sodium 136 mmol/L (135-145); Total Bilirubin 1.7 mg/dl (0.2-1.3); Total Protein 5.2 g/dl (6.3-8.2); eGFR > 60.00
[2024-04-22] MEDS: D5LR 1000 IV (09:21)
[2024-04-22] MEDS: DEXTROSE 50% SYRINGE 12.5 GRAMS IV (09:22)
--- NOTE | 2024-04-22 09:37 | CM ---
Reviewed the chart notes and spoke with the patient and her spouse at the bedside. The patient is scheduled for ERCP today. The patient resides with her spouse in a two story home with three steps to enter. The patient reports no DME/VN/SNF in
the past. The patient confirmed her pharmacy of choice is the [facility] [address] [place]. PCP is Sky Lepe. CM continues to be available to patient/family and is monitoring medical plan for needs at discharge.
Plan: Discharge plans will depend on the patient's progress.
[2024-04-22 09:41] LABS: Glucose - Point of Care 100 mg/dl (70-99)
--- NOTE | 2024-04-22 10:24 | W.PN.HOSP.TC ---
Today's Communication/Plan
-
ERCP today
Continue antibiotics
Timing of laparoscopic cholecystectomy to be determined
Assessment / Plan
Assessment / Plan
Physical Exam
General: Not in acute distress
HEENT: Moist mucous membranes
Respiratory: Clear to Auscultation Bilaterally
Cardiac: S1/S2 and Regular Rhythm
GI: Soft, Non Distended, Non Tender, Normal Bowel Sounds
Musculoskeletal: No Cyanosis and No Edema
Neuro: AAO x 3. Cranial Nerves, Strength, and Sensation all nonfocal/grossly intact bilaterally.
Assessment/Plan
Patient is a 44 y/o female with past medical history significant for chronic constipation and anxiety / depression who presented complaining of abdominal pain.
Cholelithiasis
Choledocholithiasis
Abnormal LFTs
- Possibly already passed gallstone and labs may improve over time as a results
- Significant elevation in transaminases suspected from stone
- US showed multiple gallstones
- Continue IV antibiotics for now.
- MRCP noted with choledocholithiasis
- GI and Surgery evaluations for additional recommendations.
- NPO, IVF support, pain control, etc.
- General surgery consulted, timing of laparoscopic cholecystectomy to be determined
Hypoglycemia
- Glucose in the 40s on 04/22/24 morning
- D5 LR IV fluids
Anxiety / Depression
- Stable. Continue current psychotropic med regimen without changes.
Chronic Constipation
- No recent / acute issues.
- Bowel regimen once taking in POs / post any procedures.
Headache
-Toradol given on 04/21/24
DVT Prophylaxis: SCDs. Lovenox.
Code Status: Full Code
Anticipated Discharge: > 48 hours
Subjective/Interval History
-
Date of Service: April 22, 2024
Patient was in the bathroom at the time of 2 attempted patient encounters. Patient's family was in the room. Patient doing okay.
Objective Data
-
Labs:
Laboratory Results
04/22/24
07:53
WBC 4.1 L
Hgb 10.9 L
Hct 32.5 L
Plt Count 175
PT 14.2
INR 1.07
APTT 32.9
Sodium 136
Potassium 4.0
Chloride 105
Carbon Dioxide 25
BUN 11
Creatinine 0.8
Glucose 46 L*
Calcium 8.3 L
Total Bilirubin 1.7 H
AST 437 H
ALT 562 H*
Alkaline Phosphatase 105
Vital Signs:
Vital Signs
Temp Pulse Resp BP Pulse Ox
97.9 F 76 16 98/61 98
04/22/24 07:55 04/22/24 07:55 04/22/24 07:55 04/22/24 07:55 04/22/24 07:55
I&O
04/21/24 04/22/24 04/23/24
06:59 06:59 06:59
Intake Total 990 / 990 1100 / 1100
Balance 990 / 990 1100 / 1100
[2024-04-22 13:35] LABS: Glucose - Point of Care 64 mg/dl (70-99)
[2024-04-22 14:05] LABS: Glucose - Point of Care 105 mg/dl (70-99)
[2024-04-22 14:52] LABS: Glucose - Point of Care 89 mg/dl (70-99)
[2024-04-22 16:11] LABS: Glucose - Point of Care 110 mg/dl (70-99)
--- NOTE | 2024-04-22 16:12 | PTCARENOTE ---
Pt returned from PACU via stretcher, ambulated to the bathroom and bed with assistance from the NSG staff. Pt voided. IVF infusing per order. Pt educated on CLD and to ring for assistance getting OOB, verbalized understanding. VSS. Blood glucose
obtained. Bed locked and in the lowest position, safety maintained. Oriented to room and call jo, spouse at bedside.
[2024-04-22] MEDS: LOVENOX 40 MG SC (17:13)
[2024-04-22 18:03] LABS: Glucose - Point of Care 334 mg/dl (70-99)
[2024-04-22] MEDS: KLONOPIN 0.5 MG PO (21:47)
[2024-04-22] MEDS: WELLBUTRIN XL (24 hour extended release) 450 MG PO (21:47)
[2024-04-22] MEDS: LEXAPRO 20 MG PO (21:49)
[2024-04-22 23:51] LABS: Glucose - Point of Care 246 mg/dl (70-99)
[2024-04-23] VITALS (15 sets, daily range): BP systolic 88–117; BP diastolic 58–82
[2024-04-23] MEDS: D5LR 1000 IV ×2 (00:05→11:21)
[2024-04-23] MEDS: ZOSYN 50 IV ×3 (04:35→19:27)
[2024-04-23 06:30] LABS: Glucose - Point of Care 138 mg/dl (70-99)
--- NOTE | 2024-04-23 07:44 | W.PN.GS2 ---
Addendum entered and electronically signed by Jacoby Billingsley MD 04/23/24 07:49:
Of note, ERCP imaging reviewed. Cholangiogram demonstrates a patent cystic duct with filling of the gallbladder.
Original Note:
Today's Communication / Plan
-
-- Laparoscopic cholecystectomy with IOC
Assessment / Plan
-
Patient is a 44 yo F p/w choledocholithiasis
PPD#1 s/p ERCP with stone remoal and sphincterotomy
AVSS
Repeat labs pending, no clinical signs of post-ERCP pancreatitis
The natural history pathophysiology of biliary and stone disease was reviewed. Workup and management thus far was reviewed. Role of cholecystectomy in preventing future episodes of biliary colic, cholecystitis, or choledocholithiasis was reviewed.
Recovered well from ERCP. Recommend and plan for cholecystectomy.
Plan for a laparoscopic cholecystectomy with possible cholangiogram. The procedure itself, as well as the risks, benefits, and alternatives was discussed. Specifically, we discussed the risks of bleeding, infection, injury to surrounding
structures (bowel, bile ducts), CBD injury, need for open procedure. Typical postprocedural recovery including pain management, activity restrictions, and a 10 to 20% risk of fluctuations in GI function was discussed. All questions answered.
Consent signed.
-- Laparoscopic cholecystectomy with IOC
-- NPO, IVF
-- Abx: Zosyn
-- Pain control: Tylenol, IV Dilaudid PRN
Subjective Data
-
Date of Service: April 23, 2024
Following. No nausea or vomiting. No fevers.
Objective Data
-
Intake and Output
04/22/24 04/23/24 04/24/24
06:59 06:59 06:59
Intake Total 1100 / 1100 4230 / 4230
Balance 1100 / 1100 4230 / 4230
Intake:
Oral fluids 1879 / 1879
IV fluids (Total) 1000 / 1000 2150 / 2150
normosol 150 / 150
IV piggybacks 100 / 100 200 / 200
Other:
Number of approximated MODERATE 3 2
amounts of urine
Vital Signs
Temp Pulse Resp BP Pulse Ox
98.2 F 64 18 92/58 96
04/23/24 02:20 04/23/24 02:20 04/23/24 02:20 04/23/24 02:20 04/23/24 02:20
Calcium 8.3 mg/dl (8.4-10.2) L 04/22/24 07:53
Total Bilirubin 1.7 mg/dl (0.2-1.3) H 04/22/24 07:53
Direct Bilirubin 0.7 mg/dl (0.0-0.4) H 04/21/24 04:30
AST 437 U/L (14-36) H 04/22/24 07:53
ALT 562 U/L (0-35) H* 04/22/24 07:53
Alkaline Phosphatase 105 U/L (38-126) 04/22/24 07:53
Total Protein 5.2 g/dl (6.3-8.2) L 04/22/24 07:53
Albumin 2.9 g/dl (3.5-5.0) L 04/22/24 07:53
Physical Exam
-
Gen: NAD
Abd: soft, NT, ND, non-peritoneal, prior incisions well healed
Patient has a donahue catheter: No
Patient has a central line: No
[2024-04-23] MEDS: SENOKOT-S 1 TABLET PO ×2 (07:55→19:27)
[2024-04-23 08:02] LABS: % Eosinophils 0.2 % (0-6); % Immature Granulocytes 0.7 % (0-0.5); % Lymphocytes 31.1 % (20.5-51.1); % Monocytes 6.2 % (1.7-9.3); % Neutrophils 61.8 % (42.2-75.2); Absolute Lymphocytes 1.3 10^3/uL (1.2-3.4); Absolute Monocytes 0.3 10^3/uL (0.1-0.6); Absolute Neutrophils 2.5 10^3/uL (1.4-6.5); Hematocrit 31.9 % (37.0-47.0); Hemoglobin 10.6 g/dL (12.0-16.0); Mean Corp Hgb Conc. 33.2 g/dL (33.0-37.0); Mean Corpuscular Hgb 30.9 pg (27.0-31.0); Mean Platelet Volume 9.8 fL (7.4-10.4); Nucleated Red Blood Cells % 0 %; Platelet Count 176 10^3/uL (130-400); Red Blood Cell Count 3.43 10^6/uL (4.20-5.40); Red Cell Dist. Width 12.7 % (11.5-14.5)
[2024-04-23 08:28] LABS: ALT (SGPT) 399 U/L (0-35); AST (SGOT) 176 U/L (14-36); Alkaline Phosphatase 90 U/L (38-126); Blood Urea Nitrogen 3 mg/dl (7-17); Calcium 8.4 mg/dl (8.4-10.2); Carbon Dioxide 29 mmol/L (22-30); Chloride 105 mmol/L (98-107); Estimated Creatinine Clearance 101 ml/min; Glucose 127 mg/dl (70-99); Magnesium 1.9 mg/dl (1.6-2.3); Potassium 3.6 mmol/L (3.5-5.1); Sodium 137 mmol/L (135-145); Total Bilirubin 0.8 mg/dl (0.2-1.3); Total Protein 5.2 g/dl (6.3-8.2); eGFR > 60.00
--- NOTE | 2024-04-23 08:51 | W.SUR.PREOP ---
Pre-Operative Surgical Note
-
I have examined this patient prior to the performance of the scheduled procedure.
The patient's condition is unchanged from the time of the current History and
Physical and the patient is able to undergo the scheduled procedure.
[2024-04-23 09:15] LABS: Glucose - Point of Care 112 mg/dl (70-99)
--- NOTE | 2024-04-23 09:46 | CM ---
Reviewed the chart notes. Per notes, plan is for a laparoscopic cholecystectomy. CM continues to be available to patient/family and is monitoring medical plan for needs at discharge.
Plan: Discharge plans will depend on the patient's progress.
--- NOTE | 2024-04-23 11:29 | W.PN.HOSP.TC ---
Today's Communication/Plan
-
Lap jose angel today
Assessment / Plan
Assessment / Plan
Physical Exam
General: Not in acute distress
HEENT: Moist mucous membranes
Respiratory: Clear to Auscultation Bilaterally
Cardiac: S1/S2 and Regular Rhythm
GI: Soft, Non Distended, Non Tender, Normal Bowel Sounds
Musculoskeletal: No Cyanosis and No Edema
Neuro: AAO x 3. Cranial Nerves, Strength, and Sensation all nonfocal/grossly intact bilaterally.
Assessment/Plan
Patient is a 44 y/o female with past medical history significant for chronic constipation and anxiety / depression who presented complaining of abdominal pain.
Cholelithiasis
Choledocholithiasis status post complete removal by biliary sphincterotomy and balloon
extraction
Bile duct Obstruction
Abnormal LFTs
Abnormal lab values only
- US showed multiple gallstones
- Continue IV antibiotics for now.
- MRCP noted with choledocholithiasis
- ERCP was done on 04/22/24 during which biliary stone was removed
- GI and Surgery evaluations for additional recommendations.
- NPO, IVF support, pain control, etc.
- General surgery consulted, laparoscopic cholecystectomy to be performed today
Hypoglycemia - RESOLVED
- Glucose in the 40s on 04/22/24 morning
- D5 LR IV fluids
Anxiety / Depression
- Stable. Continue current psychotropic med regimen without changes.
Chronic Constipation
- No recent / acute issues.
- Bowel regimen once taking in POs / post any procedures.
Headache
-Toradol given on 04/21/24
DVT Prophylaxis: SCDs. Lovenox.
Code Status: Full Code
Anticipated Discharge: 24 - 48 hours
Subjective/Interval History
-
Date of Service: April 23, 2024
Patient was seen and examined. She reported feeling okay, tolerating her clear liquids diet, no nausea or vomiting.
Objective Data
-
Labs:
Laboratory Results
04/23/24
07:26
WBC 4.0 L
Hgb 10.6 L
Hct 31.9 L
Plt Count 176
Sodium 137
Potassium 3.6
Chloride 105
Carbon Dioxide 29
BUN 3 L
Creatinine 0.7
Glucose 127 H
Calcium 8.4
Total Bilirubin 0.8
AST 176 H
ALT 399 H
Alkaline Phosphatase 90
Vital Signs:
Vital Signs
Temp Pulse Resp BP Pulse Ox
97.9 F 65 16 95/61 97
04/23/24 08:00 04/23/24 08:00 04/23/24 08:00 04/23/24 08:00 04/23/24 08:00
I&O
04/22/24 04/23/24 04/24/24
06:59 06:59 06:59
Intake Total 1100 / 1100 4230 / 4230
Balance 1100 / 1100 4230 / 4230
--- NOTE | 2024-04-23 11:39 | PN.CDI ---
CDI
- -
CDI:
Physician Documentation Request
Admit Date: 04/20/24 22:40
Dear Doctor Marlene,
Please review the following and provide your response in the progress notes.
Clinical Indicators:
Pt admitted with calculous of bile duct / Significant elevation in transaminases suspected from stone
Documented per ED, ' .. Slight scleral yellowing...'
04/20/24 04/21/24 04/22/24
19:31 04:30 07:53
Total Bilirubin 1.4 H 1.7 H
AST 1299 H* 1438 H* 437 H
ALT 730 H* 1024 H* 562 H*
04/23/24
07:26
AST 176 H
ALT 399 H
Based on the above, could you clarify in the progress notes, the appropriate diagnosis, if significant, that supports the above abnormalities and additional evaluation, monitoring and/or treatment rendered:
Jaundice
Abnormal lab values only
Other ( please specify)
Use of terms such as suspected, likely, concern for, or probable (associated with a specific diagnosis that is being evaluated, monitored, or treated as if it exists) are acceptable and can be coded in the inpatient setting, when documented at the
time of discharge.
Thank you,
Astrid Brenner RN
CDI Specialist
[facility] [employer]
Please use your independent medical judgment in providing your response.
--- NOTE | 2024-04-23 11:49 | PN.CDI ---
CDI
- -
CDI:
Physician Documentation Request
Admit Date: 04/20/24 22:40
Dear Doctor,
Please review the following and provide your response in the progress notes.
Clinical Indicators:
Pt admitted with calculous of bile duct
Documented per ED, ' Slight scleral yellowing..'
ERCP - - 'A stone was seen in the major papilla - A filling defect consistent with a stone was seen on
the cholangiogram - Choledocholithiasis was found. Complete removal was
accomplished by biliary sphincterotomy and balloon
extraction.'
04/20/24 04/21/24 04/22/24
19:31 04:30 07:53
Total Bilirubin 1.4 H 1.7 H
AST 1299 H* 1438 H* 437 H
ALT 730 H* 1024 H* 562 H*
04/23/24
07:26
AST 176 H
ALT 399 H
Based on the above, could you clarify in the progress notes, the appropriate diagnosis, if significant, that supports the above abnormalities and additional evaluation, monitoring and/or treatment rendered:
Bile duct Obstruction
Calculous of the bile duct only
Other ( please specify)
Use of terms such as suspected, likely, concern for, or probable (associated with a specific diagnosis that is being evaluated, monitored, or treated as if it exists) are acceptable and can be coded in the inpatient setting, when documented at the
time of discharge.
Thank you,
Astrid Brenner RN
CDI Specialist
[place] [employer]
Please use your independent medical judgment in providing your response.
--- NOTE | 2024-04-23 12:34 | W.PN.GI.CBS2 ---
Today's Communication / Plan
-
- Choledocholithiasis s/p ERCP with sphincterotomy and balloon extraction
LFT's trending down
For lap jose angel today
Will f/u on the other liver related labs, pending still
-Chronic constipation
On linzess as OP, Continue nGI follow up for constipation.
Of note she has had a colonoscopy by Dr. Nicholson when she had IBS like symptoms back in 2017 that was normal.
Will sign off,pls call back as needed.
Assessment / Plan
-
This patient is a 44-year-old woman with a history of typical biliary colic and cholelithiasis who does have a marked transaminitis.
- A stone was seen in the major papilla.
- A filling defect consistent with a stone was seen on
the cholangiogram.
- Choledocholithiasis was found. Complete removal was
accomplished by biliary sphincterotomy and balloon
extraction.
- A biliary sphincterotomy was performed.
- The biliary tree was swept.
- Choledocholithiasis s/p ERCP with sphincterotomy and balloon extraction
LFT's trending down
For lap jose angel today
-Chronic constipation
On linzess as OP, Continue nGI follow up for constipation.
Of note she has had a colonoscopy by Dr. Nicholson when she had IBS like symptoms back in 2017 that was normal.
Will sign off,pls call back as needed.
Subjective
Subjective
Date of Service: April 23, 2024
Pt feels well, no abdominal pain,nausea, vomiting. No fevers or chills.
RUQ pain at admission now resolved.
LFT's trending down post ERCP
Objective
Data Reviewed
Laboratory Data:
Laboratory Results
04/23/24 07:26
04/23/24 07:26
Laboratory Results
PT 14.2 Sec (11.4-14.6) 04/22/24 07:53
INR 1.07 04/22/24 07:53
APTT 32.9 Sec (23.4-35.0) 04/22/24 07:53
Magnesium 1.9 mg/dl (1.6-2.3) 04/23/24 07:26
Total Bilirubin 0.8 mg/dl (0.2-1.3) 04/23/24 07:26
AST 176 U/L (14-36) H 04/23/24 07:26
ALT 399 U/L (0-35) H 04/23/24 07:26
Alkaline Phosphatase 90 U/L (38-126) 04/23/24 07:26
Lipase 67 U/L (23-300) 04/22/24 07:53
Vital Signs and I&O:
Vital Signs
Temp Pulse Resp BP Pulse Ox
97.9 F 65 16 95/61 97
04/23/24 08:00 04/23/24 08:00 04/23/24 08:00 04/23/24 08:00 04/23/24 08:00
I&O
04/22/24 04/23/24 04/24/24
06:59 06:59 06:59
Intake Total 1100 / 1100 4230 / 4230
Balance 1100 / 1100 4230 / 4230
Physical Exam
Physical Exam
GI: Soft, Non Distended and Non Tender
[2024-04-23 12:50] LABS: Glucose - Point of Care 108 mg/dl (70-99)
--- NOTE | 2024-04-23 14:54 | W.IMMPOSTOP ---
Surgical Immed Post Op Note
-
Primary Surgeon: Analilia
Assisting Surgeon: None
Pre-op Diagnosis: Choledocholithiasis
Post-op Diagnosis: Choledocholithiasis
Procedure Performed: Laparoscopic cholecystectomy
Anesthesia Type: General
Specimen / Cultures:
1. Gallbladder
Estimated Blood Loss: 3 cc
Complications: None
Operative Findings:
1. Distended, flaccid GB, bile stained tissues, small cholesterol stones
2. Critical view of safety
3. Artery taken with clips, duct with napoles load stapler given distension
[2024-04-23] MEDS: SUBLIMAZE 50 MCG IV ×2 (15:32→15:44)
[2024-04-23] MEDS: DEMEROL 12.5 MG IV (15:55)
--- NOTE | 2024-04-23 16:32 | W.PN.UPDATE ---
Update Note
Progress Note Update
For billing purpose:
dx - calculus of the bile duct (choledocholithiasis) only.
[2024-04-23] MEDS: ROXICODONE 5 MG PO (16:42)
[2024-04-23] MEDS: NORMOSOL-R/PLASMALYTE-A 1000 IV (16:49)
[2024-04-23] MEDS: D5LR IV (16:49)
--- NOTE | 2024-04-23 16:55 | PTCARENOTE ---
Pt returned from PACU in bed. C/o moderate RUQ abdominal pain, prn oxycodone provided. Nasal cannula maintained, continuous pulse ox applied. IVF initiated. Abdominal lap sites C/D/I, glued and [employer]. Pt educated to ring for assistance getting OOB and
on the low fat diet, verbalized understanding. Bed locked and in the lowest position, safety maintained. Oriented to room and call jo, spouse at bedside.
[2024-04-23] MEDS: LOVENOX 40 MG SC (17:36)
[2024-04-23 18:29] LABS: Glucose - Point of Care 151 mg/dl (70-99)
[2024-04-23 19:58] LABS: Hepatitis B Surface Antigen Negative (Negative)
[2024-04-23 20:15] LABS: Hepatitis B Surface Antibody Negative; Hepatitis C Antibody Negative (Negative)
[2024-04-23 21:07] LABS: Hepatitis A IgM Antibody Negative (Negative); Hepatitis B Core Ab, IgM Negative (Negative)
[2024-04-23] MEDS: KLONOPIN 0.5 MG PO (21:20)
[2024-04-23] MEDS: WELLBUTRIN XL (24 hour extended release) 450 MG PO (21:20)
[2024-04-23] MEDS: LEXAPRO 20 MG PO (21:21)
[2024-04-23] MEDS: TORADOL 10 MG IV (23:02)
[2024-04-23 23:26] LABS: F-Actin Antibody IgG 6 Units (0-19)
[2024-04-24] VITALS (10 sets, daily range): BP systolic 83–104; BP diastolic 54–69; PULSE 68; O2SAT 98
[2024-04-24 01:33] LABS: ANA, IgG Reflex to HEp-2 None Detected (None Detected)
[2024-04-24] MEDS: ZOSYN 50 IV ×4 (01:58→19:47)
[2024-04-24] MEDS: NORMOSOL-R/PLASMALYTE-A 1000 IV ×2 (02:12→13:54)
[2024-04-24 06:22] LABS: % Basophils 0.4 % (0-2); % Eosinophils 0.2 % (0-6); % Immature Granulocytes 0.2 % (0-0.5); % Lymphocytes 29.7 % (20.5-51.1); % Monocytes 6.7 % (1.7-9.3); % Neutrophils 62.8 % (42.2-75.2); Absolute Lymphocytes 1.6 10^3/uL (1.2-3.4); Absolute Monocytes 0.4 10^3/uL (0.1-0.6); Absolute Neutrophils 3.3 10^3/uL (1.4-6.5); Hematocrit 30.1 % (37.0-47.0); Hemoglobin 10.2 g/dL (12.0-16.0); Mean Corp Hgb Conc. 33.9 g/dL (33.0-37.0); Mean Corpuscular Hgb 31.6 pg (27.0-31.0); Mean Corpuscular Volume 93.2 fL (81.0-99.0); Nucleated Red Blood Cells % 0 %; Platelet Count 161 10^3/uL (130-400); Red Blood Cell Count 3.23 10^6/uL (4.20-5.40); White Blood Cell Count 5.3 10^3/uL (4.8-10.8)
[2024-04-24 06:50] LABS: ALT (SGPT) 490 U/L (0-35); AST (SGOT) 300 U/L (14-36); Albumin 3.1 g/dl (3.5-5.0); Alkaline Phosphatase 84 U/L (38-126); Blood Urea Nitrogen 3 mg/dl (7-17); Carbon Dioxide 29 mmol/L (22-30); Chloride 102 mmol/L (98-107); Estimated Creatinine Clearance 101 ml/min; Glucose 89 mg/dl (70-99); Potassium 3.7 mmol/L (3.5-5.1); Sodium 138 mmol/L (135-145); Total Bilirubin 0.8 mg/dl (0.2-1.3); Total Protein 5.4 g/dl (6.3-8.2); eGFR > 60.00
--- NOTE | 2024-04-24 07:13 | W.PN.GS2 ---
Today's Communication / Plan
-
-- Low fat diet
-- HLIV when tolerating diet
-- Pain control: Tylenol, Toradol, Oxycodone
-- Abx: Zosyn, no need on DC
-- DC when tolerating diet and pain controlled
Assessment / Plan
-
Patient is a 44 yo F p/w choledocholithiasis
PPD#1 s/p ERCP with stone remoal and sphincterotomy
POD#1 s/p lap jose angel
AVSS
Repeat labs WBC normalized, stable Hb, normal electrolytes and renal function, normal bilirubin, mild bump in LFTs likely related to liver manipulation on top of prior irritation from choledocholithiasis
Recovering well overall postop. Some issues with postoperative pain and will monitor control throughout the morning. No major postoperative concerns. Okay for discharge from surgical perspective when tolerating diet and pain controlled with
ambulation.
-- Low fat diet
-- HLIV when tolerating diet
-- Pain control: Tylenol, Toradol, Oxycodone
-- Abx: Zosyn, no need on DC
-- Home meds
-- DVT: Lovenox
-- DC when tolerating diet and pain controlled
Subjective Data
-
Date of Service: April 24, 2024
Ports epigastric soreness which has improved somewhat from yesterday evening. No nausea or vomiting. No fevers. Minimal ambulation and PO intake postop.
Objective Data
-
Intake and Output
04/23/24 04/24/24 04/25/24
06:59 06:59 06:59
Intake Total 4230 / 4230 2059
Balance 4230 / 4230 2059
Intake:
Oral fluids 1880 / 1880 960 / 960
IV fluids (Total) 2149 / 2149 1000 / 1000
normosol 150 / 150
IV piggybacks 200 / 200 100 / 100
Other:
Number of approximated MODERATE 2
amounts of urine
Number of approximated LARGE 2
amounts of urine
Vital Signs
Temp Pulse Resp BP Pulse Ox
98.2 F 58 16 101/59 98
04/24/24 02:29 04/24/24 02:29 04/24/24 02:29 04/24/24 02:29 04/24/24 02:29
Lab Results
04/24/24 05:58
04/24/24 05:58
Calcium 8.0 mg/dl (8.4-10.2) L 04/24/24 05:58
Magnesium 1.9 mg/dl (1.6-2.3) 04/23/24 07:26
Total Bilirubin 0.8 mg/dl (0.2-1.3) 04/24/24 05:58
Direct Bilirubin 0.7 mg/dl (0.0-0.4) H 04/21/24 04:30
AST 300 U/L (14-36) H 04/24/24 05:58
ALT 490 U/L (0-35) H 04/24/24 05:58
Alkaline Phosphatase 84 U/L (38-126) 04/24/24 05:58
Total Protein 5.4 g/dl (6.3-8.2) L 04/24/24 05:58
Albumin 3.1 g/dl (3.5-5.0) L 04/24/24 05:58
Physical Exam
-
Gen: NAD
Abd: soft, mild tenderness, ND, non-peritoneal, incisions c/d/i - no erythema, ecchymosis or drainage
Patient has a donahue catheter: No
Patient has a central line: No
[2024-04-24] MEDS: TORADOL 10 MG IV ×3 (07:51→20:06)
[2024-04-24] MEDS: SENOKOT-S 1 TABLET PO ×2 (07:51→19:48)
--- NOTE | 2024-04-24 08:54 | CM ---
Reviewed the chart notes. Diet low fat. CM continues to be available to patient/family and is monitoring medical plan for needs at discharge.
Plan: Discharge to home when medically stable.
[2024-04-24] MEDS: NSS 1000 IV (12:25)
--- NOTE | 2024-04-24 12:47 | W.PN.HOSP.TC ---
Today's Communication/Plan
-
Due to hypotension, activity only with nurse of staff assistance, otherwise bedrest
Hypotension is asymptomatic and could be post-op hypotension, volume loss
Check cortisol and TSH in the morning
Continue to monitor on telemetry
Assessment / Plan
Assessment / Plan
Physical Exam
General: Not in acute distress
HEENT: Moist mucous membranes
Respiratory: Clear to Auscultation Bilaterally
Cardiac: S1/S2 and Regular Rhythm
GI: Soft, Non Distended, Non Tender, Normal Bowel Sounds
Musculoskeletal: No Cyanosis and No Edema
Neuro: AAO x 3. Cranial Nerves, Strength, and Sensation all nonfocal/grossly intact bilaterally.
Assessment/Plan
Patient is a 44 y/o female with past medical history significant for chronic constipation and anxiety / depression who presented complaining of abdominal pain.
Cholelithiasis
Choledocholithiasis status post complete removal by biliary sphincterotomy and balloon
extraction
Bile duct Obstruction
Abnormal LFTs
Abnormal lab values only
- US showed multiple gallstones
- Continue IV antibiotics for now.
- MRCP noted with choledocholithiasis
- ERCP was done on 04/22/24 during which biliary stone was removed
- GI and Surgery evaluations for additional recommendations.
- NPO, IVF support, pain control, etc.
- General surgery consulted, laparoscopic cholecystectomy to be performed today
Chronic Hypotension
Asymptomatic Hypotension
-Possibly post-op hypotension and hypovolemia
-IV fluids bolus given
-Patient is concerned that the echo is going to hurt her abdomen too much as they will have to push on where the incision is -- since patient is asymptomatic, will hold off on doing any echo at this
time
-EKG noted, check Troponins
-Check Cortisol and TSH
-Continue to monitor on telemetry
Hypoglycemia - RESOLVED
- Glucose in the 40s on 04/22/24 morning
- D5 LR IV fluids given
Anxiety / Depression
- Stable. Continue current psychotropic med regimen without changes.
Chronic Constipation
- No recent / acute issues.
- Bowel regimen once taking in POs / post any procedures.
Headache
-Toradol given on 04/21/24
DVT Prophylaxis: SCDs. Lovenox.
Code Status: Full Code
Anticipated Discharge: > 48 hours
Subjective/Interval History
-
Date of Service: April 24, 2024
Patient was seen and examined. She had some abdominal soreness but otherwise denied any complaints.
Objective Data
-
Labs:
Laboratory Results
04/24/24
05:58
WBC 5.3
Hgb 10.2 L
Hct 30.1 L
Plt Count 161
Sodium 138
Potassium 3.7
Chloride 102
Carbon Dioxide 29
BUN 3 L
Creatinine 0.7
Glucose 89
Calcium 8.0 L
Total Bilirubin 0.8
AST 300 H
ALT 490 H
Alkaline Phosphatase 84
Vital Signs:
Vital Signs
Temp Pulse Resp BP Pulse Ox
97.9 F 72 16 83/59 95
04/24/24 11:38 04/24/24 11:38 04/24/24 11:38 04/24/24 12:05 04/24/24 11:38
I&O
04/23/24 04/24/24 04/25/24
06:59 06:59 06:59
Intake Total 4230 / 4230 2059
Balance 4230 / 4230 2059
[2024-04-24 13:27] LABS: Troponin I < 0.012 ng/ml
--- NOTE | 2024-04-24 17:41 | PTCARENOTE ---
Addendum entered by Candelaria Dsouza RN 04/24/24 19:26:
EKG ordered earlier with the low bp and done at that time. After reading Dr. Peña's note this evening, he wrote to continue tele. Patient has been ordered Med/surg since admission. Reached out to Dr. Peña letting him know that patient was
not on tele, as his note indicated. Dr. Peña ordered patient to be on telemetry. night shift RN made aware and will place patient on telemetry.
Original Note:
Patients blood pressure at 1138 was 88/54 HR 72. Patient was asymptomatic and reports that she runs low. Dr. Rosario made aware. NSS 1000 ml IV bolus ordered and given. Repeat BP at 1356 was 98/56 HR 72.
[2024-04-24] MEDS: LOVENOX 40 MG SC (18:44)
[2024-04-24 20:11] LABS: Troponin I < 0.012 ng/ml
[2024-04-24] MEDS: LEXAPRO 20 MG PO (21:43)
[2024-04-24] MEDS: WELLBUTRIN XL (24 hour extended release) 450 MG PO (21:43)
[2024-04-24] MEDS: KLONOPIN 0.5 MG PO (21:43)
[2024-04-25] MEDS: NORMOSOL-R/PLASMALYTE-A 1000 IV (01:19)
[2024-04-25] MEDS: ZOSYN 50 IV ×2 (01:21→08:53)
[2024-04-25 01:53] LABS: Troponin I < 0.012 ng/ml
[2024-04-25] MEDS: MYLICON 80 MG PO (01:57)
[2024-04-25 03:00] VITALS: BP 101/56
[2024-04-25] MEDS: TORADOL 10 MG IV ×2 (03:12→09:54)
[2024-04-25 06:53] LABS: % Basophils 0.5 % (0-2); % Eosinophils 2.3 % (0-6); % Immature Granulocytes 0.2 % (0-0.5); % Lymphocytes 33.6 % (20.5-51.1); % Monocytes 5.4 % (1.7-9.3); Absolute Eosinophils 0.1 10^3/uL (0-0.7); Absolute Lymphocytes 1.5 10^3/uL (1.2-3.4); Absolute Monocytes 0.2 10^3/uL (0.1-0.6); Absolute Neutrophils 2.6 10^3/uL (1.4-6.5); Hematocrit 28.8 % (37.0-47.0); Hemoglobin 9.5 g/dL (12.0-16.0); Mean Corpuscular Hgb 31.8 pg (27.0-31.0); Mean Corpuscular Volume 96.3 fL (81.0-99.0); Mean Platelet Volume 9.9 fL (7.4-10.4); Nucleated Red Blood Cells % 0 %; Platelet Count 140 10^3/uL (130-400); Red Blood Cell Count 2.99 10^6/uL (4.20-5.40); Red Cell Dist. Width 13.5 % (11.5-14.5); White Blood Cell Count 4.4 10^3/uL (4.8-10.8)
[2024-04-25 07:12] LABS: Troponin I < 0.012 ng/ml
--- NOTE | 2024-04-25 07:14 | W.PN.GS2 ---
Today's Communication / Plan
-
-- No changes
Assessment / Plan
-
Patient is a 44 yo F p/w choledocholithiasis
PPD#3 s/p ERCP with stone remoal and sphincterotomy
POD#2 s/p lap jose angel
AVSS
Repeat labs pending
Recovering well overall postop. No major postoperative concerns. Repeat labs pending. Okay for discharge from surgical perspective when tolerating diet and pain controlled with ambulation.
-- Low fat diet
-- HLIV when tolerating diet
-- Pain control: Tylenol, Toradol, Oxycodone
-- Abx: Zosyn, no need on DC
-- Home meds
-- DVT: Lovenox
-- DC when tolerating diet and pain controlled
-- DC instructions updated
-- Gen Surg s/o
Subjective Data
-
Date of Service: April 25, 2024
Feels improved, pain control improved especially with Toradol. No nausea. Passing flatus. No dizziness or lightheadedness. No fevers.
Objective Data
-
Intake and Output
04/24/24 04/25/24 04/26/24
06:59 06:59 06:59
Intake Total 2059 2760 / 2760
Balance 2059 2760 / 2760
Intake:
Oral fluids 960 / 960 1560 / 1560
IV fluids (Total) 1000 / 1000 1100 / 1100
IV piggybacks 100 / 100 100 / 100
Other:
Number of approximated MODERATE 2
amounts of urine
Number of approximated LARGE 2
amounts of urine
Vital Signs
Temp Pulse Resp BP Pulse Ox
98.0 F 65 16 101/56 98
04/25/24 03:00 04/25/24 03:00 04/25/24 03:00 04/25/24 03:00 04/25/24 03:00
Lab Results
04/25/24 06:16
Calcium 8.0 mg/dl (8.4-10.2) L 04/24/24 05:58
Magnesium 1.9 mg/dl (1.6-2.3) 04/23/24 07:26
Total Bilirubin 0.8 mg/dl (0.2-1.3) 04/24/24 05:58
Direct Bilirubin 0.7 mg/dl (0.0-0.4) H 04/21/24 04:30
AST 300 U/L (14-36) H 04/24/24 05:58
ALT 490 U/L (0-35) H 04/24/24 05:58
Alkaline Phosphatase 84 U/L (38-126) 04/24/24 05:58
Total Protein 5.4 g/dl (6.3-8.2) L 04/24/24 05:58
Albumin 3.1 g/dl (3.5-5.0) L 04/24/24 05:58
Physical Exam
-
Gen: NAD
Abd: soft, mild tenderness, ND, non-peritoneal, incisions c/d/i - no erythema, ecchymosis or drainage
Patient has a donahue catheter: No
Patient has a central line: No
[2024-04-25 07:25] LABS: ALT (SGPT) 336 U/L (0-35); AST (SGOT) 146 U/L (14-36); Albumin 2.8 g/dl (3.5-5.0); Alkaline Phosphatase 73 U/L (38-126); Blood Urea Nitrogen 4 mg/dl (7-17); Calcium 7.9 mg/dl (8.4-10.2); Carbon Dioxide 30 mmol/L (22-30); Chloride 106 mmol/L (98-107); Estimated Creatinine Clearance 101 ml/min; Glucose 78 mg/dl (70-99); Potassium 3.8 mmol/L (3.5-5.1); Sodium 139 mmol/L (135-145); Total Bilirubin 0.4 mg/dl (0.2-1.3); Total Protein 4.8 g/dl (6.3-8.2); eGFR > 60.00
[2024-04-25 07:53] LABS: TSH Reflex To Free T4 8.48 uIU/ml (0.47-4.68)
[2024-04-25 07:56] VITALS: BP 110/63
[2024-04-25 08:21] LABS: Free T4 0.83 ng/dl (0.78-2.19)
[2024-04-25] MEDS: SENOKOT-S 1 TABLET PO (08:53)
--- NOTE | 2024-04-25 11:32 | CM ---
Addendum entered by Amalia Khanna RN 04/25/24 16:04:
Patient being discharged to home. Spouse to provide transportation home.
Original Note:
Reviewed the chart notes. Low fat diet. CM continues to be available to patient/family and is monitoring medical plan for needs at discharge.
Plan: Discharge to home when medically stable.
[2024-04-25 12:27] VITALS: BP 110/68
--- NOTE | 2024-04-25 13:04 | PN.CDI ---
CDI
- -
CDI:
Physician Documentation Request
Admit Date: 04/20/24 22:40
Dear Doctor Marlene,
Please review the following and provide your response in the progress notes.
Clinical Indicators:
Pt admitted with calculous of bile duct s/p lab keke 04/23
Progress note 04/25, ' Due to hypotension, activity only with nurse of staff assistance, otherwise bedrestHypotension is asymptomatic and could be post-op hypotension, volume loss...-Possibly post-op hypotension and hypovolemia-IV fluids bolus
given.'
Trended Hemoglobin/Hematocrit below
04/20/24 04/21/24 04/22/24
19:31 04:30 07:53
Hgb 13.0 10.7 L 10.9 L
Hct 39.0 32.4 L 32.5 L
04/23/24 04/24/24 04/25/24
07:26 05:58 06:16
Hgb 10.6 L 10.2 L 9.5 L
Hct 31.9 L 30.1 L 28.8 L
Please provide a diagnosis for the above findings:
Acute blood loss anemia
Low Hemoglobin only
Other ( please specify)
Use of terms such as suspected, likely, concern for, or probable (associated with a specific diagnosis that is being evaluated, monitored, or treated as if it exists) are acceptable and can be coded in the inpatient setting, when documented at the
time of discharge.
Thank you,
Astrid Brenner RN
CDI Specialist
[facility]
Please use your independent medical judgment in providing your response.
--- NOTE | 2024-04-25 14:04 | W.PN.HOSP.TC ---
Today's Communication/Plan
-
Discharge today
Assessment / Plan
Assessment / Plan
Physical Exam
General: Not in acute distress
HEENT: Moist mucous membranes
Respiratory: Clear to Auscultation Bilaterally
Cardiac: S1/S2 and Regular Rhythm
GI: Soft, Non Distended, Mildly Tender, Normal Bowel Sounds
Musculoskeletal: No Cyanosis and No Edema
Neuro: AAO x 3. Cranial Nerves, Strength, and Sensation all nonfocal/grossly intact bilaterally.
Assessment/Plan
Patient is a 44 y/o female with past medical history significant for chronic constipation and anxiety / depression who presented complaining of abdominal pain.
Cholelithiasis status post laparoscopic cholecystectomy
Choledocholithiasis status post complete removal by biliary sphincterotomy and balloon
extraction
Bile duct Obstruction
Abnormal LFTs
Abnormal lab values only
- US showed multiple gallstones
- Continue IV antibiotics while inpatient -- no need for antibiotics on discharge
- MRCP noted with choledocholithiasis
- ERCP was done on 04/22/24 during which biliary stone was removed
- GI and Surgery evaluations for additional recommendations.
- Low fat diet
Chronic Hypotension
Asymptomatic Hypotension - IMPROVED
-Possibly post-op hypotension and hypovolemia
-IV fluids bolus given
-Patient is concerned that the echo is going to hurt her abdomen too much as they will have to push on where the incision is -- since patient is asymptomatic, will hold off on doing any echo at this
time
-Recheck cortisol and TSH outpatient in 4 weeks. Follow-up with PCP.
-Continue to monitor on telemetry
Acute blood loss anemia from surgery
-Recheck CBC outpatient
Hypoglycemia - RESOLVED
- Glucose in the 40s on 04/22/24 morning
- D5 LR IV fluids given
Anxiety / Depression
- Stable. Continue current psychotropic med regimen without changes.
Chronic Constipation
- No recent / acute issues.
- Bowel regimen once taking in POs / post any procedures.
Headache
-Toradol given on 04/21/24
DVT Prophylaxis: SCDs. Lovenox.
Code Status: Full Code
More than 30 minutes spent in discharge including
Final examination of the patient
Summarizing hospital stay
Instructions for continuing care to all relevant caregivers
Preparation of discharge records, prescriptions, and referral forms
Total time spent (in minutes): 40
Anticipated Discharge: Today
Subjective/Interval History
-
Date of Service: April 25, 2024
Patient was seen and examined. She denied any dizziness, chest pain, shortness of breath or any other complaints. Has some abdominal soreness as expected post-op.
Objective Data
-
Labs:
Laboratory Results
04/25/24
06:16
WBC 4.4 L
Hgb 9.5 L
Hct 28.8 L
Plt Count 140
Sodium 139
Potassium 3.8
Chloride 106
Carbon Dioxide 30
BUN 4 L
Creatinine 0.7
Glucose 78
Calcium 7.9 L
Total Bilirubin 0.4
AST 146 H
ALT 336 H
Alkaline Phosphatase 73
Vital Signs:
Vital Signs
Temp Pulse Resp BP Pulse Ox
97.9 F 54 16 110/68 92
04/25/24 12:27 04/25/24 12:27 04/25/24 12:27 04/25/24 12:27 04/25/24 12:27
I&O
04/24/24 04/25/24 04/26/24
06:59 06:59 06:59
Intake Total 2059 / 2759
Balance 2059 / 2759
--- NOTE | 2024-04-25 14:53 | W.DCSUMMARY ---
Discharge Summary
Discharge Data
Date of Admission: 04/20/24
Date of Discharge: 04/25/24
Total time spent discharging patient (in min): 40
-
Pending Results: Yes
Additional Pending Results:
Follow-up pathology results from hospitalization and discuss with surgeon and primary care provider.
Hospital Course
44 y/o female with past medical history significant for anxiety/depression who presented reporting abdominal pain. Patient was found to have cholelithiasis +/- choledocholithiasis and significant elevation in transaminases, and she was started on
intravenous antibiotics. Gastroenterology and surgery were consulted. Patient's MRI/MRCP was positive for choledocholithiasis (please see the official MRI/MRCP report for all of the details), and ERCP was performed. ERCP showed: stone in the major
papilla, filling defect consistent with a stone was seen on the cholangiogram, choledocholithiasis -- complete removal was performed by biliary sphincterotomy and balloon extraction, and a biliary sphincterotomy was performed. On 04/23/24, patient
had laparoscopic cholecystectomy. Patient had some hypoglycemia and asymptomatic low blood pressures (patient reported chronic hypotension prior to arrival to the hospital) during her hospitalization which resolved, she felt good on discharge and
preferred to follow-up outpatient for these issues. Patient was tolerating diet. Patient was given antibiotics during her hospitalization but did not need them on discharge, as confirmed with the surgery team.
Discharge Plan
-
Patient Disposition: Home (Routine Discharge)
Discharge Diagnosis/Procedures: Laparoscopic cholecystectomy and ERCP
Cholelithiasis status post laparoscopic cholecystectomy
Choledocholithiasis status post complete removal by biliary sphincterotomy and balloon
extraction
Bile duct Obstruction
Abnormal LFTs
Abnormal lab values only
Chronic Hypotension
Asymptomatic Hypotension - IMPROVED
Acute blood loss anemia from surgery
Hypoglycemia - RESOLVED
Anxiety/Depression
Chronic Constipation
Headache
Condition: Good
Diet: Low Fat
Additional Diets: Issues of bloating or diarrhea following low-fat diet
Activity: No strenuous activity
Additional Activity: No heavy lifting (>20 lbs) or strenuous activities for 2 to 3 weeks postoperatively
Driving Restrictions: No driving if too sore taking narcotics
Bathing Restrictions: OK to Shower
Blood Work: Check CBC, CMP, Calcium and Magnesium and Albumin with your Primary Care Provider's office within 5 days
Wound Care: Keep incisions clean and dry. Glue will flake off in 2 to 3 weeks. Stitches will dissolve. Use ice to the abdomen to reduce any bruising or swelling.
Activity Restrictions/Additional Instructions:
Call for fevers (>100.5), nausea or vomiting, worsening abdominal pain, yellowing of the eyes or skin
If you have any dizziness/worsening of your low blood pressure, call 911 and return to the emergency room right away.
Recheck cortisol and TSH outpatient in 4 weeks. Follow-up with your PCP Dr. Lepe in 3 to 5 days as we discussed. You need a hypotension work-up/evaluation outpatient.
Referrals:
Sky Lepe DO [Family Provider] -
Jacoby Billingsley MD [Active] - in two to four weeks
Prescriptions:
New
acetaminophen [acetaminophen] 325 mg tablet
650 mg PO Q4HPRN PRN (Reason: mild pain) Qty: 1 0RF
ibuprofen 200 mg tablet
400 - 600 mg PO Q6HPRN PRN (Reason: moderate pain) Qty: 1 0RF
oxycodone 5 mg tablet
5 mg PO Q4HPRN PRN (Reason: breakthrough/severe pain) Qty: 10 0RF
Continued
clonazepam 0.5 mg Tablet
0.5 mg PO HS
ergocalciferol (vitamin D2) [Vitamin D2] 1,250 mcg (50,000 unit) Capsule
1,250 mcg PO FR
escitalopram oxalate [Lexapro] 20 mg Tablet
20 mg PO HS
bupropion HCl [Wellbutrin XL] 150 mg Tablet Extended Release 24 Hr
450 mg PO HS
Linzess 145 mcg Capsule
145 mcg PO DAILY PRN (Reason: constipation)
Discharge Orders:
Discharge Patient (As Directed); Ordered 04/25/24
Ordered By: Jim Rosario
Discharge Date and Time
Discharge Date/Time: 04/25/24 15:05
Print Language: GHANAIAN
[2024-04-25 15:12] VITALS: BP 123/69
== END 2024-04-25 15:05 | disposition home or self-care (01) | DRG 418 ==
LOC: 2 SOUTH 22:40
PROVIDERS: Internal Medicine Gastroenterology; ADMITTING PHYSICIAN Hospitalist; ATTENDING PHYSICIAN Hospitalist; CONSULT PHYSICIAN Internal Medicine; CONSULT PHYSICIAN Surgery; EMERGENCY PHYSICIAN Emergency Medicine; FAMILY PHYSICIAN Family Medicine
PROC: 0FC98ZZ Extirpation of Matter from Common Bile Duct, Via Natural or Artificial Opening Endoscopic (ICD-10-PCS; 2024-04-22)
PROC: 0FT44ZZ Resection of Gallbladder, Percutaneous Endoscopic Approach (ICD-10-PCS; 2024-04-23)
DX: K80.71 Calculus of gallbladder and bile duct without cholecystitis with obstruction (principal); D62 Acute posthemorrhagic anemia; K59.09 Other constipation; R51.9 Headache, unspecified; I95.81 Postprocedural hypotension; E86.1 Hypovolemia; F32.A Depression, unspecified; F41.9 Anxiety disorder, unspecified; E55.9 Vitamin D deficiency, unspecified; E61.1 Iron deficiency; I95.89 Other hypotension; E16.2 Hypoglycemia, unspecified; F17.290 Nicotine dependence, other tobacco product, uncomplicated; Z79.899 Other long term (current) drug therapy
CPT/HCPCS: 88304; 74183; 74330; 76000; 76700; 80053; 82248; 82533; 82962; 83690; 83735; 84439; 84443; 84484; 85025; 85027; 85610; 85730; 86015; 86038; 86705; 86706; 86709; 86803; 87340; 93005; 96365; 96375; 96376; 97162; 97165; 97530; 99285; 99406; A9575; C1769

== ENCOUNTER → 2024-07-01 16:54 | Outpatient (REF) | payer BC, SELFPAY | LOC: WDC 16:54 | PROVIDERS: ATTENDING PHYSICIAN Family Medicine | DX: Z12.31 Encounter for screening mammogram for malignant neoplasm of breast (principal) | CPT/HCPCS: 77063; 77067 ==

== ENCOUNTER → 2024-12-19 12:00 | Outpatient (REF) | payer BC, SELFPAY | LOC: DHSLP 12:00 | PROVIDERS: ATTENDING PHYSICIAN Family Medicine | DX: G47.33 Obstructive sleep apnea (adult) (pediatric) (principal); R06.83 Snoring | CPT/HCPCS: 95800 ==